=== PATIENT | female | born 1945 | race Caucasian/White ===

== ENCOUNTER 2022-03-15 11:37 | Outpatient (CLI) | payer OTHER, SELFPAY ==
[2022-03-15 21:21] LABS: Albumin* 3.9 g/dL (3.3-5.0); Chloride* 100 mmol/L (96-114); Sodium* 138 mmol/L (135-149)
[2022-03-15 21:22] LABS: Potassium* 4.3 mmol/L (3.6-5.1)
[2022-03-15 21:24] LABS: Alkaline Phosphatase* 84 U/L (40-150); Aspartate Amino Transferase* 34 U/L (12-35); Bilirubin Total* 0.5 mg/dL (0.1-1.5); Blood Urea Nitrogen* 12 mg/dL (7-30); Carbon Dioxide* 29 mmol/L (20-32); Cholesterol* 198 mg/dL (90-199); Creatinine* 0.5 mg/dL (0.5-1.5); Estimated Glomerular Filt Rate 97 ml/min; Glucose* 84 mg/dL (60-115); Total Protein* 6.7 g/dL (6.0-8.3)
[2022-03-15 23:32] LABS: Alanine Aminotransferase* 14 U/L (4-35); Calcium* 8.6 mg/dL (8.4-10.6); HDL Cholesterol* 91 mg/dL (>=50); LDL Cholesterol Calculated 83 mg/dL (<100); Triglycerides* 122 mg/dL (40-149)
[2022-03-15 23:33] LABS: Thyroid Stimulating Hormone* 0.986 uIU/mL (0.270-4.20)
== END 2022-03-15 11:38 | disposition home or self-care (01) ==
PROVIDERS: PCP Physician Assistant Medical; Visit Provider Physician Assistant Medical
DX: E78.5 Hyperlipidemia, unspecified (principal); G47.00 Insomnia, unspecified
CPT/HCPCS: 80053; 80061; 84443

== ENCOUNTER 2022-04-19 13:56 | Outpatient (CLI) | payer OTHER, SELFPAY ==
--- NOTE | 2022-04-19 14:00 | CRLHL7_ITS ---
For Patients: As a result of the Century Cures Act, medical imaging exams and procedure reports are released immediately into your electronic medical record. You may view this report before your referring provider. If you have questions, please contact your health care provider. BILATERAL SCREENING MAMMOGRAM WITH COMPUTER-AIDED DETECTION AND TOMOSYNTHESIS TECHNIQUE: CC and MLO views were obtained. These mammographic images have been obtained using full-field digital technique. These mammographic images were interpreted with the benefit of computer-aided detection. Breast Tomosynthesis was used in this interpretation. COMPARISON FILM: 02/27/20, 06/19/18, 06/13/17. FINDINGS: The breasts are heterogeneously dense, which may obscure small masses IMPRESSION: There is no radiographic evidence for malignancy. ASSESSMENT: BI-RADS Category 2: Benign RECOMMENDATION: Routine screening mammogram in 1 year. A lay language report of this examination will be provided to the patient. Rocío Torres M.D. Diagnostic/Breast Radiologist [email or web address] RONAN/Dictated by: Rocío Torres MD @ 04/20/2022 9:14:00 AM (Electronically Signed)
--- NOTE | 2022-04-19 14:30 | CRLHL7_ITS ---
For Patients: As a result of the Century Cures Act, medical imaging exams and procedure reports are released immediately into your electronic medical record. You may view this report before your referring provider. If you have questions, please contact your health care provider. DXA BONE MINERAL DENSITY STUDY Reason for exam: Osteoporosis. Current height (in): 64.0. Weight (lb): 112.0. Menopause age: 49. Ethnicity: White. 1. Have you had a previous hip or vertebral fracture? No. 2. Have you had any fractures during your adult life which did not result from significant trauma (e.g., auto accident)? No. 3. Did either of your parents have a hip fracture? No. 4. Do you smoke? No. 5. Have you ever taken Glucocorticoids? No. 6. Do you have rheumatoid arthritis? No. 7. Do you have secondary osteoporosis? No. 8. Do you drink 3 or more alcoholic drinks per day? No. 9. Are you being treated for osteoporosis? No. 10. Have you ever taken any of the following medications: Actonel, Evista, Fosamax, Miacalcin, Reclast, Boniva, Forteo, HRT (i.e. estrogen/hormone therapy), Protelos, Prolia, Vitamin D, Calcium, other ??? please specify. ANSWER: No. 11. Do you have any of the following medical conditions: Anorexia or bulimia, asthma or emphysema, end stage renal disease, hyperparathyroidism, any seizure disorders, cancer, inflammatory bowel diseases, hysterectomy, other ??? please specify. ANSWER: No. 12. What was your maximum height (inches)? 54. 13. Do you perform weight bearing exercise regularly? No. 14. Do you regularly consume dairy products? No. 15. Do you drink caffeinated beverages? Yes. 16. At what age did your period start? 14. 17. Are you premenopausal? No. 18. How many full-term pregnancies have you had? 3. 19. Have you ever missed your period for more than 6 months in a row (not including or menopause)? No. TECHNIQUE: Bone mineral density study was performed using the [employer]. FINDINGS: The results of the study expressed as bone mineral density (BMD) are as follows: Lumbar spine L1 to L4 BMD: 1.010 g/cm2. T-score: -0.3. Z-score: 2.2. Neck Left: BMD: 0.591 g/cm2. T-score: -2.3. Z-score: -0.1. Right: BMD: 0.534 g/cm2. T-score: -2.8. Z-score: -0.6. Total Left: BMD: 0.681 g/cm2. T-score: -2.1. Z-score: -0.2. Right: BMD: 0.679 g/cm2. T-score: -2.2. Z-score: -0.2. IMPRESSION: Osteoporosis. *Comparison exams done prior to 12/2019 were performed on different unit, [employer]. COMPARISON: Compared with scan of 10/03/2018, the bone mineral density has decreased by 1.7 percent at the spine and increased by 7.5 percent at the hips. ROCÍO TORRES M.D. Transcribed: 6:47 p.m. [email or web address] be/Dictated by: Rocío Torres MD @ 04/19/2022 3:38:00 PM (Electronically Signed)
== END 2022-04-19 13:57 | disposition home or self-care (01) ==
LOC: MAMMO 13:56
PROVIDERS: PCP Physician Assistant Medical; Visit Provider Physician Assistant Medical
DX: Z12.31 Encounter for screening mammogram for malignant neoplasm of breast (principal); R92.2 Inconclusive mammogram; M81.0 Age-related osteoporosis without current pathological fracture
CPT/HCPCS: 77063; 77067; 77080

== ENCOUNTER 2022-07-11 12:05 | Emergency (ER) | payer OTHER, SELFPAY ==
[2022-07-11] VITALS (17 sets, daily range): BP systolic 113–145; BP diastolic 69–96; PULSE 31–97; RESP 14; TEMP 36.4; O2SAT 92–100; BMI 18.5
--- NOTE | 2022-07-11 12:34 | CRLHL7_ITS ---
For Patients: As a result of the Cures Act, medical imaging exams and procedure reports are released immediately into your electronic medical record. You may view this report before your referring provider. If you have questions, please contact your health care provider. INDICATION: Fall, pain in lower ribs TECHNIQUE: Single view chest with AP and oblique views of the left chest COMPARISON: None available. FINDINGS: Hyperinflation and chronic interstitial changes with basilar atelectasis versus parenchymal scar. There is no pneumothorax. The cardiac silhouette is mildly prominent with a small hiatal hernia. There are nondisplaced fractures of the lateral 9th and 10th ribs. The bony thorax is otherwise intact. IMPRESSION: Hyperinflation and chronic interstitial change without dense consolidation. Nondisplaced fractures of the lateral 9th and 10th ribs. If pain and clinical symptoms persist, subtle, non-displaced injuries are not entirely excluded. Dictated by Jamey Gates MD @ 07/11/2022 3:06:57 PM (Electronically Signed)
--- NOTE | 2022-07-11 12:35 | CRLHL7_ITS ---
For Patients: As a result of the Cures Act, medical imaging exams and procedure reports are released immediately into your electronic medical record. You may view this report before your referring provider. If you have questions, please contact your health care provider. Indication: Fall and bruising Comparison: None available. Technique: AP and lateral views lumbar spine were obtained. Findings: The lumbar vertebral body heights are grossly maintained with mild straightening of the normal lumbar lordosis. There is no significant spondylolisthesis or displaced fracture. There is moderate degenerative disc disease with disc height loss and marginal osteophyte formation. There is moderate facet arthrosis. The soft tissues are unremarkable. Impression: Moderate degenerative changes of the lumbar spine without acute osseous abnormality. Dictated by Jamey Gates MD @ 07/11/2022 3:03:05 PM (Electronically Signed)
--- NOTE | 2022-07-11 12:35 | CRLHL7_ITS ---
For Patients: As a result of the Century Cures Act, medical imaging exams and procedure reports are released immediately into your electronic medical record. You may view this report before your referring provider. If you have questions, please contact your health care provider. INDICATION: Fall and pain TECHNIQUE: Single view pelvis COMPARISONS: None available. FINDINGS: Femoral heads are well-seated in the acetabula. There is no displaced fracture, dislocation or acute osseous abnormality. There is moderate axial loss of joint space and marginal osteophyte formation. There is demonstration of a metallic radiopaque object projecting over the right lower quadrant pelvis which may be external to the patient. Correlate clinically. IMPRESSION: [id number] degenerative changes of the bilateral hips without acute osseous abnormality. Dictated by Jamey Gates MD @ 07/11/2022 3:04:44 PM (Electronically Signed)
--- NOTE | 2022-07-11 12:38 | ED_ITS ---
HPI - Fall General Date Seen: 07/11/22 Chief Complaint: Fall/Minor Trauma Stated Complaint: Fell Time Seen by Provider: 07/11/22 12:11 Source: patient Mode of arrival: EMS Limitations: no limitations History of Present Illness HPI Narrative: Patient is a 76-year-old female who resides independently in the community, 2 days ago she fell, in her bathroom as she tripped over a vacuum. She said the next day she was doing fine with a little bit of soreness but today she could not really even get out of bed she describes pain over her left lower ribs on the left side, and flank region, with occasional radiation down the lower back region whenever she moves. She called her daughter who then called the ambulance and was brought here because she goes to medical care at the [facility]. She did not take any pain medications today, is really could not get to place where they were held at, denies any numbness tingling or weakness, there is no loss of conscious she denies hitting head. She is not on anticoagulants. MD complaint: fall Onset (ago): day(s) Fall from: standing Fall witnessed: no Place fall occurred: home Loss of consciousness: No Prolonged down time: no Symptoms prior to fall: none Context: tripped/slipped Location of injury: chest, back and pelvis Severity: moderate Quality: stabbing Associated symptoms (after fall): denies Related Data Home Medications Medication Instructions Recorded Confirmed albuterol sulfate 90 mcg/actuation 2 puff inhalation Q4H PRN 02/07/22 07/11/22 aerosol inhaler (ProAir HFA) pramipexole 0.25 mg tablet 0.25 - 1 mg PO QPM 02/07/22 07/11/22 Previous Rx's Medication Instructions Recorded hydroxyzine pamoate 25 mg capsule See Rx Instructions .Route 02/09/22 .COMPLEX #40 caps escitalopram oxalate 20 mg tablet See Rx Instructions .Route 03/13/22 .COMPLEX #90 tabs simvastatin 40 mg tablet 40 mg PO QPM #30 tabs 03/13/22 omeprazole 40 mg capsule,delayed 40 mg PO QDAY #90 caps 03/22/22 release zolpidem 5 mg tablet 5 mg PO .qhs #30 tabs 04/12/22 doxycycline hyclate 100 mg tablet 100 mg PO BID #14 tabs 06/13/22 hydrocodone 5 mg-acetaminophen 325 1 tab PO Q4H PRN pain #10 tabs 06/13/22 mg tablet zolpidem 5 mg tablet 5 mg PO .qhs #30 tabs 06/13/22 prednisone 20 mg tablet 40 mg PO QDAY #10 tabs 06/22/22 albuterol sulfate 2.5 mg/3 mL 2.5 mg (3 mL) inhalation Q4H PRN 06/23/22 (0.083 %) solution for nebulization shortness of breath or wheezing #180 mL fluticasone fur. 200 mcg-umeclid 1 inh inhalation Q24H #60 ea 06/23/22 62.5 mcg-vilant 25 mcg inhalat.powder (Trelegy Ellipta) Allergies Allergy/AdvReac Type Severity Reaction Status Date / Time sertraline Allergy Mild Rash Verified 07/11/22 12:19 Review of Systems Status of ROS: Reports: 10 or more systems reviewed and unremarkable except as noted in History and below [facility] Medical History Malignant neoplasm of breast (12/28/09) Microcytic anemia Normal colonoscopy (02/07/11) Tubular adenoma Ulcer of esophagus Surgical History (Updated 04/20/22 @ 12:27 by Stella Torres PA-C) History of colonoscopy with polypectomy History of esophagogastroduodenoscopy (EGD) History of left cataract extraction History of lumpectomy Social History Smoking Status: Former smoker Do you use any of these nicotine containing products: None Second hand tobacco smoke exposure: No How often do you have a drink containing alcohol: 4 or more times a week How many standard drinks containing alcohol do you have on a typical day: 1 or 2 AUDIT-C Alcohol total score: 4 Non-prescribed substance use: denies use Exam Narrative: Exam Narrative: On examination in stabilization room 2 she is laying on the bed. She is in no pain currently and reports to me that they did give her some medication in the rate but she feels it has worn off. Her pupils are equal round reactive to light there is no scleral icterus redness or TMs are normal there is no evidence of trauma over head, her neck is full range of motion of flexion extension rotation, with no tenderness to palpation, her air entry bilaterally is normal which she splints a little bit on the left side when she takes a deep breath in her heart sounds no clicks murmurs or gallops are noted, her abdomen is soft and benign there is no guarding no pedal splenomegaly she is able to roll onto her left and her right side, him and she definitely has bruising over her left flank region, and tenderness to palpation. There is no centralized tenderness over her thoracic or L-spine, her air entry bilaterally is good. Home and a little bit of tenderness over her left posterior sacroiliac crest, her hips have excellent range of motion bilaterally in flexion extension internal external rotation, there is no leg length discrepancy, her pulses are normal in her upper lower extremities in her muscle strength is normal upper lower and symmetrical bilaterally. Const: Vital Signs, click to edit/add: Vital Signs - 24 hr 07/11/22 12:09 07/11/22 13:37 07/11/22 13:37 Temperature 97.5 F L Pulse Rate Pulse Rate [Pulse Oximeter] 83 Respiratory Rate 14 Blood Pressure Blood Pressure [Le ft Upper Arm] 143/90 H Pulse Oximetry 94 94 94 Oxygen Delivery Me thod Room Air Nasal Cannula Oxygen Flow Rate 2 07/11/22 12:31 07/11/22 12:32 07/11/22 13:00 Temperature Pulse Rate 96 89 81 Pulse Rate [Pulse Oximeter] Respiratory Rate Blood Pressure 145/96 H Blood Pressure [Le ft Upper Arm] Pulse Oximetry 95 96 100 Oxygen Delivery Me thod Nasal Cannula Oxygen Flow Rate 2 07/11/22 13:02 07/11/22 14:05 07/11/22 14:30 Temperature Pulse Rate 80 74 Pulse Rate [Pulse Oximeter] Respiratory Rate Blood Pressure 126/87 Blood Pressure [Le ft Upper Arm] Pulse Oximetry 99 93 95 Oxygen Delivery Me thod Oxygen Flow Rate 07/11/22 14:32 07/11/22 15:02 07/11/22 15:32 Temperature Pulse Rate 76 31 L 97 Pulse Rate [Pulse Oximeter] Respiratory Rate Blood Pressure 113/80 Blood Pressure [Le ft Upper Arm] Pulse Oximetry 95 95 95 Oxygen Delivery Me thod Oxygen Flow Rate 07/11/22 16:04 07/11/22 16:15 Temperature Pulse Rate 92 92 Pulse Rate [Pulse Oximeter] Respiratory Rate Blood Pressure Blood Pressure [Le ft Upper Arm] Pulse Oximetry 92 99 Oxygen Delivery Me thod Oxygen Flow Rate Documenting provider has reviewed patient's vital signs: yes Course Course Hospital Course: X-ray showed some nondisplaced rib fractures is likely accounting for pain, I was also able to see a T12 compression deformity and also an old x-ray I noted on a chest x-ray from in end of May. This looked unchanged, but the radiologist did not comment on this. Nevertheless we got her up and she is able to walk around doing a road test, so I think she can go home I did speak to her daughter Flaquita about this she is in a come here and I can further discuss with her. Vital Signs Vital signs: Initial Vital Signs Temperature 97.5 F L 07/11/22 12:09 Temperature Source Temporal Artery Scan 07/11/22 12:09 Pulse Rate 83 07/11/22 12:09 Respiratory Rate 14 07/11/22 12:09 Blood Pressure 143/90 H 07/11/22 12:09 Blood Pressure Mean 107 07/11/22 12:09 Blood Pressure Position Supine 07/11/22 12:09 Pulse Oximetry 94 07/11/22 12:09 Oxygen Delivery Method 07/11/22 12:09 Vital Signs Temperature 97.5 F L 07/11/22 12:09 Pulse Rate 83 07/11/22 12:09 Respiratory Rate 14 07/11/22 12:09 Blood Pressure 143/90 H 07/11/22 12:09 Pulse Oximetry 94 07/11/22 12:09 Oxygen Delivery Method 07/11/22 12:09 Temperature 97.5 F L 07/11/22 12:09 Pulse Rate 94 07/11/22 16:45 Respiratory Rate 14 07/11/22 12:09 Blood Pressure 113/69 07/11/22 16:35 Pulse Oximetry 95 07/11/22 16:45 Oxygen Delivery Method 07/11/22 16:45 Oxygen Flow Rate 2 07/11/22 16:45 MDM - Fall MDM Narrative Medical decision making narrative: Life-threatening differential diagnosis including head injury, vertebral frac ture, splenic her kidney fracture with hematoma formation are all considered. She also may have pneumothorax, broken ribs, hemothorax, and other possibilities I explained to her that I would like to give her some pain medication and get some imaging studies and she was comfortable with this. Given the fact she is not on anticoagulants fall from standing height, it has been 2 days and no evidence of obvious trauma on her head or neck region I do not think we need to image this. Differential Diagnosis Differential diagnosis: Likely syncope, dislocation of shoulder region, fracture of wrist, compression fracture, concussion with loss of consciousness and concussion without loss of consciousness Medical Records Attestation: I reviewed the patient's medical records. Lab Data Attestation: I reviewed the patient's lab results. Labs: Lab Results 07/11/22 Range/Units 15:10 Urine Color Yeimi A (Yellow) Urine Appearance Cloudy A (Clear) Urine pH 6.0 (5.0-8.5) Ur Specific [place] 1.025 (1.000-1.030) Urine Protein Negative (Negative) Urine Glucose (UA) Negative (Negative) Urine Ketones Trace A (Negative) Urine Blood Negative (Negative) Urine Nitrite Negative (Negative) Urine Bilirubin Negative (Negative) Urine Urobilinogen 1.0 (0.2-1.0) Ur Leukocyte Esterase Trace A (Negative) Urine RBC 0-2 (0-2) Urine WBC 5-10 A (0-5) Ur Squamous Epith Cells Few (None-Few) Urine Bacteria Moderate A (None) Urine Mucus Moderate A (None) Imaging Data Chest x-ray: Radiologist's impression: Patient: [facility] Facility:[facility] Patient ID:?[id number] Site Patient ID:?[id number]. Site :?[id number] Study:?XRay Spine Lumbar 3 view-07/11/2022 1:58:58 PM Ordering Physician:Pamella Alcala Final Report: Indication: Fall and bruising Comparison: None available. Technique: AP and lateral views lumbar spine were obtained. Findings: The lumbar vertebral body heights are grossly maintained with mild straightening of the normal lumbar lordosis. There is no significant spondylolisthesis or displaced fracture. There is moderate degenerative disc disease with disc height loss and marginal osteophyte formation. There is moderate facet arthrosis. The soft tissues are unremarkable. Impression: Moderate degenerative changes of the lumbar spine without acute osseous abnormality. Dictated by Jamey Gates MD @ 07/11/2022 3:03:05 PM (Electronic Signature) Patient: [facility] Facility:[facility] Patient ID:?[id number] Site Patient ID:?[id number]. Site :?[id number] Study:?XRay Pelvis 1 view-07/11/2022 2:00:30 PM Ordering Physician:Pamella Alcala Final Report: INDICATION: Fall and pain TECHNIQUE: Single view pelvis COMPARISONS: None available. FINDINGS: Femoral heads are well-seated in the acetabula. There is no displaced fracture, dislocation or acute osseous abnormality. There is moderate axial loss of joint space and marginal osteophyte formation. There is demonstration of a metallic radiopaque object projecting over the right lower quadrant pelvis which may be external to the patient. Correlate clinically. IMPRESSION: [id number] degenerative changes of the bilateral hips without acute osseous abnormality. Dictated by Jamey Gates MD @ 07/11/2022 3:04:44 PM (Electronic Signature) Patient: KHADAR ESCALANTE Facility:?[facility] Patient ID:?[id number] Site Patient ID:?[id number]. Site :?[id number] Study:?XRay Extremity Left Ribs with PA CXR-07/11/2022 2:01:24 PM Ordering Physician:Pamella Alcala Final Report: INDICATION: Fall, pain in lower ribs TECHNIQUE: Single view chest with AP and oblique views of the left chest COMPARISON: None available. FINDINGS: Hyperinflation and chronic interstitial changes with basilar atelectasis versus parenchymal scar. There is no pneumothorax. The cardiac silhouette is mildly prominent with a small hiatal hernia. There are nondisplaced fractures of the lateral 9th and 10th ribs. The bony thorax is otherwise intact. IMPRESSION: Hyperinflation and chronic interstitial change without dense consolidation. Nondisplaced fractures of the lateral 9th and 10th ribs. If pain and clinical symptoms persist, subtle, non-displaced injuries are not entirely excluded. Dictated by Jamey Gates MD @ 07/11/2022 3:06:57 PM (Electronic Signature) Discharge Plan Discharge Clinical Impression: Closed rib fracture Patient Disposition: Home w/ Parent or Adult Condition: Improved Instructions: Rib Fracture (ED) Additional Instructions: Home rest pain medication as directed, would highly recommend you use MiraLax, daily is the constipation can be severe. Follow-up with primary care in 3-5 days as you probably will knee longer pain medication, no use of alcohol with these, and the I would just use the minimum amount allow you to get around. Prescriptions: No Action doxycycline hyclate 100 mg tablet 100 mg PO BID Qty: 14 0RF hydrocodone-acetaminophen 5-325 mg tablet 1 tab PO Q4H PRN (Reason: pain) Qty: 10 0RF zolpidem 5 mg tablet 5 mg PO .qhs Qty: 30 1RF albuterol sulfate [ProAir HFA] 90 mcg/actuation HFA aerosol inhaler 2 puff inhalation Q4H PRN pramipexole 0.25 mg tablet 0.25 - 1 mg PO QPM Hold Instructions: Order Change Rx Instructions: administer 2 - 3 hours before bedtime hydroxyzine pamoate 25 mg capsule See Rx Instructions .ROUTE .COMPLEX Qty: 40 3RF Dose Instruction: TAKE 1-2 CAPSULES BY MOUTH EVERY 6 HOURS NEEDED FOR ANXIETY. NOT COVERED Rx Instructions: TAKE 1-2 CAPSULES BY MOUTH EVERY 6 HOURS NEEDED FOR ANXIETY. NOT COVERED simvastatin 40 mg tablet 40 mg PO QPM Qty: 30 0RF escitalopram oxalate 20 mg tablet See Rx Instructions .ROUTE .COMPLEX Qty: 90 0RF Dose Instruction: TAKE 1 TABLET BY MOUTH DAILY. *STOP CITALOPRAM AND START ESCITALOPRAM Rx Instructions: TAKE 1 TABLET BY MOUTH DAILY. *STOP CITALOPRAM AND START ESCITALOPRAM omeprazole 40 mg capsule,delayed release(DR/EC) 40 mg PO QDAY Qty: 90 2RF zolpidem 5 mg tablet 5 mg PO .qhs Qty: 30 1RF prednisone 20 mg tablet 40 mg PO QDAY Qty: 10 0RF albuterol sulfate 2.5 mg /3 mL (0.083 %) solution for nebulization 2.5 mg inhalation Q4H PRN (Reason: shortness of breath or wheezing) Qty: 180 3RF Trelegy Ellipta 200-62.5-25 mcg blister with device 1 inh inhalation Q24H Qty: 60 3RF Follow Up/Referrals: Stella Torres PA-C [Primary Care Provider] - Stand Alone [facility]
[2022-07-11] MEDS: OxyCODONE/APAP 5-325 TABLET 1 TAB PO (13:03)
[2022-07-11] MEDS: MORPHINE 2 MG/ML inj IVP (13:04)
[2022-07-11] MEDS: 0.9 % SODIUM CHLORIDE 1000 ml 1,000 ML IV (13:06)
[2022-07-11] MEDS: ONDANSETRON 2 MG/ML inj 4 MG IVP (13:12)
[2022-07-11 15:17] LABS: Appearance Urine Cloudy (Clear); Bilirubin Urine Negative (Negative); Blood Urine Negative (Negative); Color Urine Amber (Yellow); Glucose Urine Negative (Negative); Ketones Urine Trace (Negative); Leukocyte Esterase Urine Trace (Negative); Nitrite Urine Negative (Negative); Protein Urine Negative (Negative); Specific Gravity Urine 1.025 (1.000-1.030)
[2022-07-11 15:28] LABS: Bacteria Urine Moderate; Mucus Urine Moderate; RBC Urine 0-2 (0-2); Squamous Epithelial Cell Urine Few (None-Few)
[2022-07-11] MEDS: CALCIUM CARBONATE 500 MG CHEW PO (16:57)
== END 2022-07-11 17:08 | disposition home or self-care (01) ==
PROVIDERS: Emergency Provider Family Medicine; PCP Physician Assistant Medical
DX: S22.42XA Multiple fractures of ribs, left side, initial encounter for closed fracture (principal); W01.0XXA Fall on same level from slipping, tripping and stumbling without subsequent striking against object, initial encounter
CPT/HCPCS: 71101; 72100; 72170; 81001; 87086; 94761; 96374; 96375; 99284; A9270; J2270; J2405; J7030

== ENCOUNTER 2025-03-07 07:38 | Emergency (ER) | payer MEDICARE, SELFPAY ==
--- OUTSIDE RECORDS SUMMARY | 2025-03-07 07:40 | XMS_ITS | Clinical Summary ---
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 Gender Identity Not on file Sexual Orientation Not on file Last Filed Vital Signs Vital Sign Reading Time Taken Comments Blood Pressure 118/88 11/22/2024 6:58 PM CDT Pulse 70 11/22/2024 6:58 PM CDT Temperature 37.1 C (98.7 F) 11/22/2024 1:03 PM CDT Respiratory Rate 20 11/22/2024 6:58 PM CDT Oxygen Saturation 90% 11/22/2024 6:58 PM CDT Inhaled Oxygen Concentration - - Weight 46.1 kg (101 lb 10.1 oz) 11/22/2024 1:03 PM CDT Height 162.6 cm (5' 4) 11/22/2024 1:03 PM CDT Body Mass Index 17.45 11/22/2024 1:03 PM CDT Plan of Treatment Health Maintenance Due Date Last Done Comments ADVANCE CARE PLANNING 1944 ANNUAL REVIEW OF HM ORDERS 1944 LIPID 1984 FALL RISK ASSESSMENT 2009 RSV VACCINE (1 - 1-dose 75+ series) 10/17/2019 DTAP/TDAP/TD VACCINE (1 - Tdap) 01/21/2020 01/20/2020, 12/28/2009 PHQ-2 (once per calendar year) 2024 MEDICARE ANNUAL WELLNESS VISIT 09/17/2024 09/18/2023, 07/14/2022 COVID-19 VACCINE ( season) 2024 05/27/2024, 06/27/2023, 12/21/2022, Additional history exists INFLUENZA VACCINE (#1) 2025 , 06/27/2023, 04/18/2022, Additional history exists DIABETES SCREENING 11/23/2027 11/22/2024 DEXA 12/21/2037 12/21/2022 PNEUMOCOCCAL VACCINE 50+ YEARS Completed 03/08/2015, 12/28/2009 ZOSTER VACCINE Completed 03/26/2019, 11/15, 12/17/2013 HPV VACCINE (No Doses Required) Completed MENINGITIS VACCINE Aged Out No longer eligible based on patient's age to complete this topic Procedures Procedure Name Priority Date/Time Associated Diagnosis Comments COMPREHENSIVE METABOLIC PANEL STAT 11/22/2024 1:51 PM CDT from Last 3 Months or Most Recently Relevant to Health Maintenance Results * (ABNORMAL) Comprehensive metabolic panel (11/22/2024 1:51 PM CDT) Sodium 138 135 - 145 mmol/L 11/22/2024 2:31 PM CDT [facility] Potassium 4.6 3.4 - 5.3 mmol/L 11/22/2024 2:31 PM CDT [facility] Carbon Dioxide (CO2) 29 22 - 29 mmol/L 11/22/2024 2:31 PM CDT [facility] Anion Gap 9 7 - 15 mmol/L 11/22/2024 2:31 PM CDT [facility] Urea Nitrogen 26.5(H) 8.0 - 23.0 mg/dL 11/22/2024 2:31 PM CDT [facility] Creatinine 0.43(L) 0.51 - 0.95 mg/dL 11/22/2024 2:31 PM CDT [facility] GFR Estimate >90 >60 mL/min/1.7 3m2 11/22/2024 2:31 PM CDT [facility] Comment:eGFR calculated usin g 2021 CKD-EPI equation. Calcium 9.1 8.8 - 10.4 mg/dL 11/22/2024 2:31 PM CDT [facility] Chloride 100 98 - 107 mmol/L 11/22/2024 2:31 PM CDT [facility] Glucose 119(H) 70 - 99 mg/dL 11/22/2024 2:31 PM CDT [facility] Alkaline Phosphatase 78 40 - 150 U/L 11/22/2024 2:31 PM CDT [facility] AST 17 0 - 45 U/L 11/22/2024 2:31 PM CDT [facility] ALT 10 0 - 50 U/L 11/22/2024 2:31 PM CDT [facility] Protein Total 6.3(L) 6.4 - 8.3 g/dL 11/22/2024 2:31 PM CDT [facility] Albumin 3.9 3.5 - 5.2 g/dL 11/22/2024 2:31 PM CDT [facility] Bilirubin Total 0.4 <=1.2 mg/dL 11/22/2024 2:31 PM CDT [facility] Blood BLOOD SPECIMEN / Unknown Venipuncture / Unknown 11/22/2024 1:51 PM CDT 11/22/2024 1:57 PM CDT Bob Pugh MD LAB - BLOOD ORDERABLES Final Result [facility] [address] [facility] Lab (1st floor, no room number) [place] [address], [facility] from Last 3 Months or Most Recently Relevant to Health Maintenance Insurance MEDICARE [employer] [facility] MEDICARE ADVANTAGE MEDICARE [employer] [facility] MEDICARE ADVANTAGE Care Teams Sheet Rock Taper Relationship Specialty Start Date End Date [facility], [facility] [address] [place] [address] PCP - General 11/22/24
--- OUTSIDE RECORDS SUMMARY | 2025-03-07 07:40 | XMS_ITS | Encounter Summary ---
Author Organization [facility] Address [facility] [place] [address] Care Team Providers Care Supervisor Pile Driving Name Role Phone System, Provider Not In Primary Care Provider Un available [facility], [facility] Primary Care Provide r Encounter Details Date Type Department Care Team (Late st Contact Info) Description 06/05/2023 [facility] Medical Advice [facility] Special[facility] [address] [address] Cornelio Wiley MA Social History Tobacco Use Types Packs/Day Years Used Date Smoking Tobacco: Never Assessed Adolescent Education Answer Date Record ed Getting School Help Needed Not on file 05/01 Comments Unknown Sex and Gender Information Value Date Recorded Sex Assigned at Not on file 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
--- OUTSIDE RECORDS SUMMARY | 2025-03-07 07:40 | XMS_ITS | Clinical Summary ---
Author Organization [id number] Address [address] [place] [address] Care Team Providers Care Associate Dean Name Role Phone Gumaro Hawk MD Primary Care Provider Allergies No known active allergies Medications cyanocobalamin, vitamin B-12, 1,000 mcg cap Daily 10/29/19 21 Active hydrOXYzine pamoate (VISTARIL) 25 mg capsule TAKE 1-2 CAPSULES BY MOUTH EVERY 6 HOURS NEEDED FOR ANXIETY. *NOT COVERED 10/27/19 23 Active hydrOXYzine HCL (ATARAX) 25 mg tabletIndicatio ns:Anxiety Take 1 Tablet (25 mg) by mouth every 6 hours if needed for Anxiety. 25 Tablet 09/18/19 24 Active albuterol-iprat ropium (DUONEB) (2.5-0.5 mg) in 3 mL NEBULIZATION solutionIndicat ions:COPD exacerbation (HC),Cough, unspecified type Inhale 3 mL via a nebulizer every 6 hours if needed for Shortness Of Breath (cough). 30 mL 11/02/19 24 Active escitalopram oxalate (LEXAPRO) 20 mg tabletIndicatio ns:Anxiety with depression Take 1 Tablet (20 mg) by mouth once daily in the morning. 90 Tablet 3 05/27/20 24 Active atorvastatin (LIPITOR) 10 mg tabletIndicatio ns:Dyslipidemia Take 1 Tablet (10 mg) by mouth at bedtime. 90 Tablet 3 05/27/20 24 Active oxyCODONE-aceta minophen (PERCOCET) 5-325 mg per tabletIndicatio ns:Closed fracture of multiple ribs of left side, sequela,Steve terese fracture of body of thoracic vertebra (HC) Take 1-2 Tablets by mouth every 12 hours if needed for Pain. 15 Tablet 05/27/20 24 Active omeprazole (PRILOSEC) 40 mg Delayed-Release capsuleIndicati ons:Chronic GERD TAKE 1 CAPSULE BY MOUTH ONCE DAILY 90 Capsule 2 08/01/19 25 Active predniSONE (DELTASONE) 20 mg tabletIndicatio ns:COPD exacerbation (HC) Take 2 Tablets (40 mg) by mouth once daily with a meal. 10 Tablet 09/09/19 25 Active zolpidem 5 mg tabletIndicatio ns:Insomnia, idiopathic TAKE 1 TABLET (5 MG) BY MOUTH AT BEDTIME IF NEEDED FOR SLEEP. 30 Tablet 11/07/19 25 Active clotrimazole 1 % creamIndication s:Angular cheilitis APPLY TO AFFECTED AREA TWICE A DAY 45 g 12/19/19 25 Active fluticasone fur-umeclidiniu m-vilanterol (Trelegy Ellipta) 100-62.5-25 mcg inhalerIndicati ons:COPD mixed type (HC) INHALE 1 PUFF BY MOUTH EVERY DAY 90 Each 01/17/20 25 Active ergocalciferol ((vitamin D2)) 50,000 unit capsuleIndicati ons:Vitamin D deficiency TAKE 1 CAPSULE (50,000 UNITS) BY MOUTH ONE TIME PER WEEK. *NOT COVERED 12 Capsule 02/20/20 25 Active zolpidem (AMBIEN) 5 mg tabletIndicatio ns:Insomnia, idiopathic TAKE 1 TABLET (5 MG) BY MOUTH AT BEDTIME IF NEEDED FOR SLEEP.,,,INS URANCE PLAN LIMIT 30 Tablet 02/17/20 25 Active albuterol HFA (PRO-AIR; VENTOLIN; PROVENTIL) 90 mcg/actuation inhalerIndicati ons:COPD mixed type (HC) INHALE 2 PUFFS BY MOUTH EVERY 4 HOURS IF NEEDED FOR SHORTNESS OF BREATH OR WHEEZING. 25.5 Each 3 02/18/20 25 Active albuterol HFA (PRO-AIR; VENTOLIN; PROVENTIL) 90 mcg/actuation inhalerIndicati ons:COPD mixed type (HC) INHALE 2 PUFFS BY MOUTH EVERY 4 HOURS IF NEEDED FOR SHORTNESS OF BREATH OR WHEEZING. 3 Each 3 01/10/20 24 025 Discontinued zolpidem 5 mg tabletIndicatio ns:Insomnia, idiopathic TAKE 1 TABLET (5 MG) BY MOUTH AT BEDTIME IF NEEDED FOR SLEEP.,,,INS URANCE PLAN LIMIT 30 Tablet 01/13/20 25 025 Discontinued(Re order (E-cancel not sent)) ergocalciferol 50,000 unit capsuleIndicati ons:Vitamin D deficiency TAKE 1 CAPSULE (50,000 UNITS) BY MOUTH ONE TIME PER WEEK. *NOT COVERED 12 Capsule 01/19/20 25 025 Discontinued Active Problems Problem Noted Date Diagnosed Date Depression, recurrent 05/27/2024 Cough 11/02/2023 History of colonoscopy with polypectomy 11/02/19 History of lumpectomy 11/02/2023 Osteoarthritis 11/02/2023 Osteoporosis 11/02/2023 Restless legs syndrome 11/02/2023 Iron deficiency anemia 01/08/2023 History of colon polyps 01/08/2023 Alcoholic intoxication without complication 08/16 Malignant neoplasm of female breast, unspecified estrogen receptor status, unspecified laterality, unspecified site of breast 08/28/2022 Pseudophakia of left eye 06/23/2019 Nuclear senile cataract of right eye 06/23/2019 Presbyopia 06/23/2019 Hyperopic astigmatism of left eye 06/23/2019 Hyperopia of right eye 06/23/2019 Soriano's esophagus 01/21/2014 Overview (07/23/2018): EGD 01/2014 Soriano's esophagus, repeat EGD in 1 year EGD 07/2017 Soriano's, repeat EGD in 3 years Adenomatous colon polyp 01/21/2014 Overview (01/21/2014): Colonoscopy 01/2014 polyp repeat in 5 years Gastroesophageal reflux disease 12/17/2013 Chronic obstructive pulmonary disease 03/04/2012 Anxiety 12/28/2009 Hyperlipidemia 12/28/2009 AMBLYOPIA, REFRACTIVE-OD 12/07/1999 Resolved Problems Problem Noted Date Diagnosed Date Resolved Date Dermatochalasis of both upper eyelids 05/11/2022 Encounters Date Type Department Care Team Description 03/06/2025 Nurse Triage [facility] [address] [place] [address] Gumaro Hawk MD Breathing Problem (/) 02/16/2025 Refill [facility] [id number] [place] [phone] Gumaro Hawk MD Refill Request (Albuterol Hfa) 02/16/[address] [phone] Gumaro Hawk MD Refill Request (zolpidem 5 mg tablet ) 02/16/[address] [phone] Gumaro Hawk MD Refill Request (Ergocalciferol) 01/14/[address] [phone] Gumaro Hawk MD Refill Request (Ergocalciferol, Trelegy Ellipta) 01/11/2025 Refill [facility] [address] [place] [phone] Gumaro Hawk MD Refill Request (Zolpidem) 01/05/2025 Patient Outreach [facility] - Care Management Navigation/[facility] [address] [place] [phone] Marie Alarcon [facility] (Care Guide Annual Medicare Wellness Visit outreach/) 12/29/2024 Patient Outreach [facility] - Care Management Navigation[facility] [address] [place] [phone] Marie Alarcon [facility] (Care Guide Annual Medicare Wellness Visit outreach/) 12/29/2024 Patient Outreach [facility] - Care Management Navigation/[facility] [address] [place] [phone] Marie Alarcon [facility] (Care Guide Annual Medicare Wellness Visit outreach/) 12/23/2024 Patient Outreach [facility] - Care Management Navigation/[facility] [address] [place] [phone] Marie Alarcon [facility] (Care Guide Annual Medicare Wellness Visit outreach/) 12/17/2024 Refill [facility] [address] [place] [address] Gumaro Hawk MD Refill Request (Clotrimazole) 12/15/2024 Refill [facility] [address] [place] [address] Gumaro Hawk MD Refill Request (Prednisone) from Last 3 Months Immunizations Immunization Administration Dates Next Due COVID-19 VACCINE SPIKEVAX (M ODERNA 50MCG/0.5ML) 12YO+ PFS 05/27/2024 COVID-19 vaccine (Pfizer-Bio NTech 30mcg/0.3mL) 12YO+ BIVALENT PF, MDV 12/21/2022 Influenza, High-dose Inactivated 019,04/29/2018,05/04/2017,2015,04/23/2015,05/06/2014 Influenza, High-dose Quadriv alent Inactivated 04/18/2022,05/16/2021,04/29/2020 Influenza, IIV3 (Age 6-35 mos) 3,04/24/2012,04/19/2011,2009,04/19/2009 Influenza, IIV3 (Age >=3 years) 05/05/2008,05/10 Influenza, IIV4 04/29/2020, 9,04/29/2018,2016,05/15/2016,04/23/2015,05/06/2014,1 ,04/24/2012,04/19/2011, 010,04/19/2009 Influenza, Inactivated AIIV4 (Age 65+ Years) Preserv Free 06/27/2023 Influenza, Inactivated IIV3 (Age 65+ Years) Preserv Free 05/27/2024 Pneumococcal Poly,23-Valent (Pneumovax) 12/28/2009 Pneumococcal conj 13-Valent (Prevnar 13) 03/08/2015 Td, Preservative Free (age > = 7 Years) 01/20/2020,01/20/2020,12/28/2009 Zoster (Shingrix-RZV, recombinant) 03/26/2019, Zoster (Zostavax-ZVL, live) 12/17/2013 Social History Tobacco Use Types Packs/Day Years Used Date Smoking Tobacco: Former Cigarettes Q uit: 12/31/2011 Smokeless Tobacco: Never Tobacco Cessation:Counseling Given: Not Answered Alcohol Use Standard Drinks/Week Comments Yes 4 (1 standard drink = 0.6 oz pur e alcohol) PHQ-2 Answer Date Recorded PHQ-2 TOTAL SCORE 2 05/27/2024 Social Connections Answer Date Recorded Do you often feel lonely or isolated from those around you? 0 09/18/2023 Financial Resource Strain Answer Date R ecorded Difficulty of Paying Living Expenses 3 09/18/2023 Difficulty of Paying Living Expenses Not on file 09/18/2023 Food Insecurity Answer Date Recorded Do you worry your food will run out before you are able to buy more? 1 09/18/2023 Transportation Needs Answer Date Record ed Does lack of transportation keep you from medica l appointments? 1 09/18/2023 Does lack of transportation keep you from work, meetings or getting things that you need? 1 09/18/2023 Housing Stability Answer Date Recorded What is your housing situation today? 1 09/18/2023 Utilities Answer Date Recorded Do you have trouble paying f or utilities (for example, heat, electricity, water, phone)? 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 Gender Identity Not on file Sexual Orientation Not on file Obstetrics History Last Filed Vital Signs Vital Sign Reading Time Taken Comments Blood Pressure 116/61 11/22/2024 12:18 PM CDT Pulse 92 11/22/2024 12:18 PM CDT Temperature 36.4 C (97.6 F) 11/22/2024 12:18 PM CDT Respiratory Rate 18 11/22/2024 12:18 PM CDT Oxygen Saturation 89% 11/22/2024 12:18 PM CDT Inhaled Oxygen Concentration - - Weight 48.1 kg (106 lb) 05/27/2024 11:00 AM PAN PULLER Height 162.6 cm (5' 4) 09/18/2023 11:12 AM PAN PULLER Body Mass Index 18.19 09/18/2023 11:12 AM PAN PULLER Plan of Treatment Health Maintenance Due Date Last Done Comments RSV vaccine for adults or (1 - 1-dose 75+ series) 10/17/2019 BMI (ht and wt on same day) for age 18+ 09/17/2024 09/18/2023, 07/14/2022 Medicare Wellness for age 65+ 09/18/2024 09/18/2023, 07/14/2022 COVID-19 vaccine series ( season) 2024 05/27/2024, 06/27/2023, 12/21/2022, Additional history exists Influenza Vaccine (#1) 2025 , 06/27/2023, 04/29/2020, Additional history exists Depression screening for age 12+ 05/29/2025 05/29/2024, 05/27/2024, 09/18/2023, Additional history exists Tetanus booster 01/19/2030 01/20/2020, 07/0 01/2020, 12/28/2009 Pneumococcal series for age 50+ Completed 03/08/2015, 12/28/2009 Zoster (shingles) series for age 50+ Completed 03/26/2019, 12/13/2018, 12/17/2013 DEXA/DXA scan for age 65+ Completed 12/21/2022 Hepatitis B series for 19+ Aged Out N o longer eligible based on patient's age to complete this topic Medical Devices Implanted Type [facility] Nurse Device Identifier Shelf Expiration Date Model / Serial / Lot Lens Iol 21.5 Wf [id number]. [id number] - [id number] Implanted:Qty: 1 on 03/09/2014 by Nash Montoya MD at [facility] [employer] [id number] # / [id number] / Procedures Procedure Name Priority Date/Time Associated Diagnosis Comments XR DXA BONE DENSITY 2 SITES AXIAL Routine 12/21/2022 12:46 PM CDT Postmenopausal from Last 3 Months or Most Recently Relevant to Health Maintenance Results * XR DXA BONE DENSITY 2 SITES AXIAL [49110.1] (12/21/2022 12:46 PM CDT) Anatomical Region Laterality Modality Spine, HIPS, HIPL, HIPR Computed Radiography 12/21/2022 12:4 6 PM CDT Impressions 12/21/2022 2:26 PM CDT OSTEOPOROSIS. T score meets the WHO criteria for osteoporosis at one or more measured sites. The risk of osteoporotic fracture increases approximately two-fold for each standard deviation decrease in T-score. Narrative 12/21/2022 2:26 PM CDT For Patients: As a result of the Century Cures Act, medical imaging exams and procedure reports are released immediately into your electronic medical record. You may view this report before your referring provider. If you have questions, please contact your health care provider. EXAM: XR DXA BONE DENSITY 2 SITES AXIAL LOCATION: [facility] DATE/TIME: 12/21/2022 12:46 PM CDT INDICATION: B. Height loss greater than 1 inch - R29.890. Postmenopausal. DEMOGRAPHICS: Age- 77 years. Gender- Female. COMPARISON: None. TECHNIQUE: Dual-energy x-ray absorptiometry (DXA) performed with routine technique. FINDINGS: DXA RESULTS -Lumbar Spine: L1-L4: BMD: 1.192 g/cm2. T-score: 0.1. Z-score: 2.5. -RIGHT Hip Total: BMD: 0.715 g/cm2. T-score: -2.3. Z-score: 0.0. -RIGHT Hip Femoral neck: BMD: 0.685 g/cm2. T-score: -2.5. Z-score: -0.1. -LEFT Hip Total: BMD: 0.707 g/cm2. T-score: -2.4. Z-score: -0.1. -LEFT Hip Femoral neck: BMD: 0.677 g/cm2. T-score: -2.6. Z-score: -0.2. WHO T-SCORE CRITERIA -Normal: T score at or above -1 SD -Osteopenia: T score between -1 and -2.5 SD -Osteoporosis: T score at or below -2.5 SD The World Health Organization (WHO) criteria is applicable to perimenopausal females, postmenopausal females, and men aged 50 years or older. FRACTURE RISK -FRAX Results: The 10 year probability of major osteoporotic fracture is 15.8%, and of hip fracture is 6%, based on left femoral neck BMD. RECOMMENDATIONS Consider treatment if major osteoporotic fracture score is greater than or equal to 20%, and if the hip fracture score is greater than or equal to 3%. Procedure Note Lucio Lino MD - 12/21/2022 For Patients: As a result of the Cures Act, medical imagingexams and procedure reports are released immediately into your electronicmedical record. You may view this report before your referring provider.If you have questions, please contact your health care provider. EXAM: XR DXA BONE DENSITY 2 SITES AXIAL LOCATION: [facility] DATE/TIME: 12/21/2022 12:46 PM CDT INDICATION: B. Height loss greater than 1 inch - R29.890.Postmenopausal. DEMOGRAPHICS: Age- 77 years. Gender- Female. COMPARISON: None. TECHNIQUE: Dual-energy x-ray absorptiometry (DXA) performed with routinetechnique. FINDINGS: DXA RESULTS -Lumbar Spine: L1-L4: BMD: 1.192 g/cm2. T-score: 0.1. Z-score: 2.5. -RIGHT Hip Total: BMD: 0.715 g/cm2. T-score: -2.3. Z-score: 0.0. -RIGHT Hip Femoral neck: BMD: 0.685 g/cm2. T-score: -2.5. Z-score: -0.1. -LEFT Hip Total: BMD: 0.707 g/cm2. T-score: -2.4. Z-score: -0.1. -LEFT Hip Femoral neck: BMD: 0.677 g/cm2. T-score: -2.6. Z-score: -0.2. WHO T-SCORE CRITERIA -Normal: T score at or above -1 SD -Osteopenia: T score between -1 and -2.5 SD -Osteoporosis: T score at or below -2.5 SD The World Health Organization (WHO) criteria is applicable toperimenopausal females, postmenopausal females, and men aged 50 years orolder. FRACTURE RISK -FRAX Results: The 10 year probability of major osteoporotic fracture is15.8%, and of hip fracture is 6%, based on left femoral neck BMD. RECOMMENDATIONS Consider treatment if major osteoporotic fracture score is greater than orequal to 20%, and if the hip fracture score is greater than or equal to3%. IMPRESSION: OSTEOPOROSIS. T score meets the WHO criteria for osteoporosis at one ormore measured sites. The risk of osteoporotic fracture increasesapproximately two-fold for each standard deviation decrease in T-score. us Gumaro Hawk MD DEXA Final R esult from Last 3 Months or Most Recently Relevant to Health Maintenance Insurance [employer] MEDICARE PART A [place] ONLY Advance Directives * Full Code (Latest Code Status on File) Date Activated Date Inactivated Comments 01/08/2023 8:17 AM 01/08/2023 12:45 PM Question Answer Comments Code Status Discussion: Unable to Assess Preferences, Provider to review later * Full Code Date Activated Date Inactivated Comments 01/08/2023 8:17 AM 01/08/2023 8:17 AM Question Answer Comments Code Status Discussion: Unable to Assess Preferences, Provider to review later * Full Code Date Activated Date Inactivated Comments 12/05/2018 7:08 AM 12/05/2018 1:54 PM * Full Code Date Activated Date Inactivated Comments 03/09/2014 9:41 AM 03/09/2014 1:36 PM Care Teams Associate Dean Relationship Specialty [place] [id number] [facility] [place] [address] PCP - General Family Practice 08/18/22
[2025-03-07 07:41] VITALS: BP 120/76; PULSE 86; RESP 18; TEMP 36.1; O2SAT 90; BMI 18.4
--- NOTE | 2025-03-07 07:54 | CRLHL7_ITS ---
For Patients: As a result of the Century Cures Act, medical imaging exams and procedure reports are released immediately into your electronic medical record. You may view this report before your referring provider. If you have questions, please contact your health care provider. INDICATION: Shortness of breath TECHNIQUE: Two view chest. Comparison 07/11/2022 FINDINGS: Stable cardiac mediastinal lungs are hyperinflated moderate hiatal hernia. No acute airspace or interstitial process. No effusion. Dictated by Rocío Torres MD @ 03/07/2025 8:45:38 AM (Electronically Signed)
[2025-03-07 08:00] VITALS: O2SAT 89
[2025-03-07 08:28] LABS: HCO3 VBG 34 mmol/L (21-28); PCO2 VBG 59 mmHG (40-50); PO2 VBG < 30.1 mmHG (25-47); pH VBG 7.377 (7.32-7.43)
[2025-03-07 08:29] LABS: Hematocrit 40.5 % (33.0-51.0); Hemoglobin* 12.3 gm/dL (12.0-16.0); Immature Granulocytes Pct Auto 0.3 %; Lymphocytes Absolute Auto 1.10 K/uL (0.90-2.90); Mean Corpuscular HGB Conc 30 gm/dL (32-36); Mean Corpuscular Hemoglobin 30 pg (26-34); Mean Corpuscular Volume 99 fL (80-100); RDW Coefficient of Variation % 14.9 % (11.5-15.5); Red Blood Count 4.09 m/uL (4.00-5.20); White Blood Count* 12.29 K/uL (4.50-11.00)
--- NOTE | 2025-03-07 08:32 | ED_ITS ---
HPI - General Adult General Chief complaint: Shortness of Breath/Dyspnea Stated complaint: shortness of breath Time Seen by Provider: 03/07/25 07:48 History of Present Illness HPI narrative: Patient is an 79-year-old woman with history of COPD who comes in today with 2 weeks of progressive shortness of breath. She has had no chest pain no orthopnea no PND no nausea no vomiting no edema. Her cough has been nonproductive. She has had no signs of acute infection such as fevers chills night sweats dysuria abdominal pain no rashes or bruising no stiff neck. Patient is normally on 1 L of oxygen at home but is unable maintain her saturations on that level of oxygen. No other significant history available. Patient no longer smokes. She has been using her nebulizer treatments with limited effect. Related Data Home Medications ?Medication ?Instructions ?Recorded ?Confirmed pramipexole 0.25 mg tablet 0.25 - 1 mg PO QPM 02/07/22 07/11/22 Held on 07/11/22. Instructions: Order Change Previous Rx's ?Medication ?Instructions ?Recorded escitalopram oxalate 20 mg tablet See Rx Instructions .Route 03/13/22 .COMPLEX #90 tabs simvastatin 40 mg tablet 40 mg PO QPM #30 tabs omeprazole 40 mg capsule,delayed 40 mg PO QDAY #90 cap s 03/22/22 release zolpidem 5 mg tablet 5 mg PO .qhs #30 tabs doxycycline hyclate 100 mg tablet 100 mg PO BID #14 ta bs 06/13/22 hydrocodone 5 mg-acetaminophen 325 1 tab PO Q4H PRN pa in #10 tabs 06/13/22 mg tablet prednisone 20 mg tablet 40 mg (2 x 20 mg) PO QDAY #1 0 tabs 06/22/22 albuterol sulfate 2.5 mg/3 mL 2.5 mg (3 mL) inhalation Q4H PRN 06/23/22 (0.083 %) solution for nebulization shortness of breat h or wheezing #180 mL fluticasone fur. 200 mcg-umeclid 1 inh inhalation Q24H #60 ea 06/23/22 62.5 mcg-vilant 25 mcg inhalat.powder (Trelegy Ellipta) zolpidem 5 mg tablet 5 mg PO QHS PRN insomnia #30 tabs 08/22/22 hydroxyzine pamoate 25 mg capsule 25 - 50 mg (1 - 2 x 25 mg) PO Q6H 02/21/23 PRN for anxiety #40 caps albuterol sulfate 90 mcg/actuation 2 puff inhalation Q 4H PRN for 04/19/23 aerosol inhaler wheezing #17 ea Allergies Allergy/AdvReac Type Severity Reaction Status Date / Time sertraline Allergy Mild Rash Verified 03/07/25 07:45 Review of Systems Status of ROS: Reports: 10 or more systems reviewed and unremarkable except as noted in History and below [facility] Medical History Ulcer of esophagus ?K22.10 - Ulcer of esophagus without bleeding (ICD-10) Tubular adenoma ?D36.9 - Benign neoplasm, unspecified site (ICD-10) Normal colonoscopy (02/07/11) Microcytic anemia ?D50.9 - Iron deficiency anemia, unspecified (ICD-10) Malignant neoplasm of breast (12/28/09) ?C50.919 - Malignant neoplasm of unspecified site of unspecified female breast (ICD-10) Surgical History History of lumpectomy ?Z98.890 - Other specified postprocedural states (ICD-10) History of left cataract extraction ?Z98.42 - Cataract extraction status, left eye (ICD-10) History of esophagogastroduodenoscopy (EGD) ?Z98.890 - Other specified postprocedural states (ICD-10) History of colonoscopy with polypectomy ?Z98.890 - Other specified postprocedural states (ICD-10) ?Z86.010 - Personal history of colonic polyps (ICD-10) Social History Smoking Status: Former smoker Do you use any of these nicotine containing products: None Second hand tobacco smoke exposure: No How often do you have a drink containing alcohol: 4 or more times a week How many standard drinks containing alcohol do you have on a typical day: 1 or 2 AUDIT-C Alcohol total score: 4 Non-prescribed substance use: denies use Exam Narrative: Exam Narrative: EXAM GENERAL: Patient appears comfortable and well. Thin and emaciated EYES: No scleral icterus. LYMPH: No supraclavicular or cervical lymphadenopathy. SKIN: Visible skin seen during exam normal or with benign process only. EXT: No dependent lower extremity pedal edema. HEART: Regular rate and rhythm with no murmurs, rubs, or gallops. LUNGS: Occasional expiratory wheezes bilaterally with decreased breath sounds throughout. ABD: Soft, non tender, non distended. PSYCH: Good eye contact, speech is not pressured. Const: Vital Signs, click to edit/add: Vital Signs - 24 hr 03/07/25 07:41 Temperature 97.0 F L Pulse Rate [Right Pulse Oximeter] 86 Respiratory Rate 18 Blood Pressure [Ri ght Upper Arm] 120/76 Pulse Oximetry 90 Oxygen Delivery Me thod Room Air Course Course ED Course: Patient seen and examined. Laboratory studies EKG chest x-ray collected. Vital Signs Vital signs: Initial Vital Signs Temperature 97.0 F L 03/07/25 07:41 Temperature Source Temporal Artery Scan 03/07/25 07:41 Pulse Rate 86 03/07/25 07:41 Pulse Rhythm Regular 03/07/25 07:41 Pulse Strength 3+ Normal 03/07/25 07:41 Respiratory Rate 18 03/07/25 07:41 Respiratory Effort Normal 03/07/25 07:41 Respiratory Depth Normal 03/07/25 07:41 Respiratory Pattern Normal 03/07/25 07:41 Blood Pressure 120/76 03/07/25 07:41 Blood Pressure Mean 90 03/07/25 07:41 Blood Pressure Position Sitting 03/07/25 07:41 Pulse Oximetry 90 03/07/25 07:41 Oxygen Delivery Method Room Air 03/07/25 07:41 Vital Signs Temperature 97.0 F L 03/07/25 07:41 Pulse Rate 86 03/07/25 07:41 Respiratory Rate 18 03/07/25 07:41 Blood Pressure 120/76 03/07/25 07:41 Pulse Oximetry 90 03/07/25 07:41 Oxygen Delivery Method Room Air 03/07/25 07:41 Temperature 97.0 F L 03/07/25 07:41 Pulse Rate 86 03/07/25 07:41 Respiratory Rate 18 03/07/25 07:41 Blood Pressure 120/76 03/07/25 07:41 Pulse Oximetry 90 03/07/25 07:41 Oxygen Delivery Method Room Air 03/07/25 07:41 Medical Decision Making MDM Narrative Medical decision making narrative: Patient is a 79-year-old woman with COPD who comes in today with COPD exacerbation. Chest x-ray shows her emphysema but no other acute findings. Her D-dimer is borderline but I do not think that warrants a CT of the chest. White blood cell count is mildly elevated procalcitonin is elevated. This time will treated with a course of prednisone and Zithromax. She will continue nebulizer treatments and home oxygen and follow-up with her primary physician as needed. Patient no longer smokes. Differential diagnosis includes but not limited to viral syndrome although her viral swabs are negative. It would also include but not limited to pneumonia COPD congestive heart failure pneumothorax bronchitis. Lab Data Labs: Lab Results 03/07/25 03/07/25 Range/Units 08:23 08:26 WBC 12.29 H (4.50-11.00) K/uL RBC 4.09 (4.00-5.20) m/uL Hgb 12.3 (12.0-16.0) gm/dL Hct 40.5 (33.0-51.0) % MCV 99 (80-100) fL MCH 30 (26-34) pg MCHC 30 L (32-36) gm/dL RDW Coeff of Palak 14.9 (11.5-15.5) % Plt Count 605 H (140-440) K/uL Neut % (Auto) 79.5 H (42.0-72.0) % Lymph % (Auto) 9.0 L (20-44) % [place] % (Auto) 7.3 (0.0-11.0) % Eos % (Auto) 3.1 (0.0-7.0) % Baso % (Auto) 0.8 (0.0-3.0) % Neut # (Auto) 9.80 H (1.7-7.0) K/uL Lymph # (Auto) 1.10 (0.90-2.90) K/uL [place] # (Auto) 0.90 (0.00-0.90) K/UL Eos # (Auto) 0.40 (0.00-0.50) K/uL Baso # (Auto) 0.10 (0.00-0.30) K/uL Abs Immat Gran (auto) 0.00 (0.00-0.30) K/uL Imm/Tot Granulo (auto) 0.3 % D-Dimer Quant (PE/DVT) 0.74 H (0.00-0.50) ug/ml VBG pH 7.377 (7.32-7.43) VBG pCO2 59 H (40-50) mmHG VBG pO2 < 30.1 (25-47) mmHG VBG HCO3 34 H (21-28) mmol/L Sodium 138 (135-149) mmol/L Potassium 4.0 (3.6-5.1) mmol/L Chloride 99 (96-114) mmol/L Carbon Dioxide 34 H (20-32) mmol/L Anion Gap 5 L (7-15) mEq/L BUN 11 (7-30) mg/dL Creatinine 0.4 L (0.5-1.5) mg/dL Estimated Creat Clear 34.38 Estimated GFR 100 ml/min Glucose 104 (60-115) mg/dL Lactate 1.6 (0.5-1.9) mmol/L Calcium 8.9 (8.4-10.6) mg/dL Total Bilirubin 0.4 (0.1-1.5) mg/dL AST 24 (12-35) U/L ALT 12 (4-35) U/L Alkaline Phosphatase 79 (40-150) U/L Troponin I < 0.01 (0.01-0.04) ng/mL NT-Pro-B Natriuret Pep 187 (See Note) pg/mL Total Protein 6.6 (6.0-8.3) g/dL Albumin 3.7 (3.3-5.0) g/dL Procalcitonin 10.50 H (<0.50) ng/mL SARS-CoV-2 (PCR) Negative SARS-CoV-2 (Negative) Influenza Type A (PCR) Negative PCR FLU A (Negative) Influenza Type B (PCR) Negative PCR FLU B (Negative) RSV (PCR) Negative PCR RSV (Negative) Discharge Plan Discharge Clinical Impression: Acute exacerbation of chronic obstructive pulmonary disease Patient Disposition: Home, Self-Care Condition: Stable Instructions: COPD (Chronic Obstructive Pulmonary Disease) (ED) Additional Instructions: Continue nebulizer treatments Continue oxygen per previous Zithromax as directed Prednisone as directed Follow-up with your doctor next week. Activity Level: No Restrictions Discharge Diet: Regular Prescriptions: No Action doxycycline hyclate 100 mg tablet 100 mg PO BID Qty: 14 0RF hydrocodone-acetaminophen 5-325 mg tablet 1 tab PO Q4H PRN (Reason: pain) Qty: 10 0RF pramipexole 0.25 mg tablet 0.25 - 1 mg PO QPM Rx Instructions: administer 2 - 3 hours before bedtime simvastatin 40 mg tablet 40 mg PO QPM Qty: 30 0RF escitalopram oxalate 20 mg tablet See Rx Instructions .ROUTE .COMPLEX Qty: 90 0RF Dose Instruction: TAKE 1 TABLET BY MOUTH DAILY. *STOP CITALOPRAM AND START ESCITALOPRAM Rx Instructions: TAKE 1 TABLET BY MOUTH DAILY. *STOP CITALOPRAM AND START ESCITALOPRAM omeprazole 40 mg capsule,delayed release(DR/EC) 40 mg PO QDAY Qty: 90 2RF zolpidem 5 mg tablet 5 mg PO .qhs Qty: 30 1RF prednisone 20 mg tablet 40 mg PO QDAY Qty: 10 0RF albuterol sulfate 2.5 mg /3 mL (0.083 %) solution for nebulization 2.5 mg inhalation Q4H PRN (Reason: shortness of breath or wheezing) Qty: 180 3RF Trelegy Ellipta 200-62.5-25 mcg blister with device 1 inh inhalation Q24H Qty: 60 3RF zolpidem 5 mg tablet 5 mg PO QHS PRN (Reason: insomnia) Qty: 30 1RF hydroxyzine pamoate 25 mg capsule 25 - 50 mg PO Q6H PRN (Reason: for anxiety) Qty: 40 0RF albuterol sulfate 90 mcg/actuation HFA aerosol inhaler 2 puff inhalation Q4H PRN (Reason: for wheezing) Qty: 17 0RF Follow Up/Referrals: Provider,Not a Local [Primary Care Provider, Family Practice] [facility]one [facility] Procedures ABG Interpretation ABG Results: 03/07/25 08:23 VBG pH 7.377 VBG pCO2 59 H VBG pO2 < 30.1 VBG HCO3 34 H
[2025-03-07 08:35] LABS: Immature Granulocytes Abs Auto 0.00 K/uL (0.00-0.30); Slide Review Reflex No
[2025-03-07 08:36] LABS: Lactate* 1.6 mmol/L (0.5-1.9)
[2025-03-07 08:47] LABS: Albumin* 3.7 g/dL (3.3-5.0); Chloride* 99 mmol/L (96-114); Potassium* 4.0 mmol/L (3.6-5.1); Sodium* 138 mmol/L (135-149)
[2025-03-07 08:50] LABS: Alanine Aminotransferase* 12 U/L (4-35); Alkaline Phosphatase* 79 U/L (40-150); Anion Gap 5 mEq/L (7-15); Aspartate Amino Transferase* 24 U/L (12-35); Bilirubin Total* 0.4 mg/dL (0.1-1.5); Blood Urea Nitrogen* 11 mg/dL (7-30); Carbon Dioxide* 34 mmol/L (20-32); Creatinine* 0.4 mg/dL (0.5-1.5); Est. Creatinine Clearance* 34.38; Estimated Glomerular Filt Rate 100 ml/min; Total Protein* 6.6 g/dL (6.0-8.3)
[2025-03-07 08:51] LABS: Calcium* 8.9 mg/dL (8.4-10.6); Glucose* 104 mg/dL (60-115)
[2025-03-07 08:52] LABS: D Dimer Quantitative* 0.74 ug/ml (0.00-0.50)
[2025-03-07 09:07] LABS: NT Pro B Type NatriureticPept* 187 pg/mL (See Note); Procalcitonin* 10.50 ng/mL (<0.50)
[2025-03-07 09:09] LABS: PCR FLU A Negative PCR FLU A (Negative); PCR FLU B Negative PCR FLU B (Negative); PCR RSV Negative PCR RSV (Negative); SARS PCR* Negative SARS-CoV-2 (Negative)
[2025-03-07 09:54] VITALS: O2SAT 92
[2025-03-07 10:28] VITALS: O2SAT 91
== END 2025-03-07 12:08 | disposition home or self-care (01) ==
PROVIDERS: Emergency Provider Internal Medicine
DX: J44.1 Chronic obstructive pulmonary disease with (acute) exacerbation (principal)
CPT/HCPCS: 36415; 36600; 71046; 80053; 82803; 83605; 83880; 84145; 84484; 85025; 85379; 87040; 87631; 93005; 94761; 99283; 99284; 99285